=== PATIENT | male | born 1960 | race Caucasian/White ===

== ENCOUNTER 2024-01-10 11:03 | Outpatient (CLI) | payer BC ==
--- NOTE | 2024-01-10 12:00 | Sleep Patient Instructions ---
Sleep Center Visit Summary - Patient Visit Information Reason for Visit: Initial consultation - Patient Instructions Additional Instructions: You will continue with CPAP therapy with pressure changed to 8-13 cmH2O. A supply prescription will be updated with your DME. We encourage you to continue to try to lose weight. Please follow up with the sleep care office in 1 year. - Clinic Information Contact: [facility] [address] [place] [address] [email or web address] T: [phone]
--- NOTE | 2024-01-10 12:07 | SLEEP CARE CONSULTATION ---
Information from patient questionnaire entered by Sedrick Duran. I have reviewed and concur with the information entered by Sedrick Duran. This document represents the service I personally performed and the decisions made by me, Hannah Hawkins ARNP. History of Present Illness Service Date and Time: 01/10/2024 1103 Reason for Visit: New patient, Previously diagnosed sleep apnea, sleep apnea on CPAP therapy Chief Complaint: reports: Other (Update supplies - prior sleep center closed - need continued care) Date of Onset: Apnea - 15 years Usual bedtime: 11:00 PM Time it takes to fall asleep: 10 minutes Snores at night: Yes Observed to quit breathing while asleep: Yes Sleeps alone due to snoring: Yes Number of times waking at night: One or two Reasons for waking at night: reports: Snoring, Bathroom, Other (Noise) Toss, Turn, or Twitch while sleeping: Yes Recalls having dreams: Yes Usually gets out of bed at: 7:30 AM Feels refreshed in the morning: Yes Morning headache: No Sleepy or fatigued during the day: No Ever fallen asleep while driving: No Takes day naps: No Dreams during day naps: No Prior sleep studies: Yes Year and Where: 2015 [facility] Type of Sleep Study: Polysomnography Additional HPI information: TULIO RIOS was previously diagnosed to have moderate, AHI 16, obstructive sleep apnea-hypopnea syndrome as seen in sleep study dated 06/29/2016 through [facility] and comes in today to establish care for CPAP therapy. - Parasomnia Symptoms Ever been unable to move upon waking from sleep: No Walks in sleep: No Talks in sleep: No Ever acted out dreams in sleep: No Ever felt weak in the knees when startled or emotional: No Bothered by creepy, crawly, restless sensations in legs: No Problems with memory or concentration: No CPAP Compliance Data - Data Reviewed with Patient Average duration of nightly device use: 7 hours 4 minutes Compliance rate %: 88.3 (07/14/23-01/09/24; 169/180 days used) Current pressure setting (cmH2O): 4-20 (median 6.4, avg 8.8, max 12.8) Average residual AHI: 1.4 Average large leak: 0 secs Compliance data discussion: He has a Dreamstation 2. He is using [place] for his supplies but needs his prescription updated. He is using a nasal pillows mask. Subjective Missed days of use due to: reports: illness Patient concerns: reports: mask discomfort (nasal irritation occasionlly from pillows mask), dry mouth, nose, throat (occasionally). denies: aerophagia, air blowing in eyes, mask leak noise, condensation in mask/hose, nasal congestion, epistaxis Observed to snore while using device: Yes (occasionally) Current pressure setting perceived as: comfortable On therapy, patient: reports: sleeping better, awakening more refreshed, being more awake and alert during the day, more rested overall. denies: drowsiness while driving Initial [place] Sleepiness Scale score: 6 (in 2023) Past Medical History Past Medical History: reports: Other (Have neuropathy in my feet and high cholesterol, but am not receiving any treatment for either.) Social History The patient is retired. Patient is and lives in [place]. Have you smoked in the past 12 months: No Alcohol use: Yes Alcohol amount and frequency: One every 2-3 days Caffeine use: Yes Caffeine amount and frequency: 12 oz soda every 1-2 days Family History Family history of sleep disordered breathing: Yes Family Hx Sleep Apnea: Father: Snoring, Sibling: Snoring, Sleep apnea - Treated, Sleep apnea - Untreated Allergies and Home Medications Known drug allergies: No Drug allergies reviewed: Yes Home medication list reviewed: Yes Allergy and home medication list: Allergies No Known Drug Allergies Allergy (Verified 01/10/24 11:44) Home Medications No Known Home Medications 01/10/24 [History] Review of Systems Weight gain over past 5 years: 5 Cardiovascular: denies: high blood pressure Gastrointestinal: denies: heartburn Neurological: reports: fainting or unconsciousness (Reaction to skin cuts/bleeding or needle sticks). denies: headaches Psychiatric: denies: anxiety, depression Ear/Nose/Throat: reports: nose bleeds, wisdom teeth removed. denies: tonsillectomy Physical Exam Vital signs obtained and entered by: Hannah Maldonado NP Blood Pressure: 133/78 Cuff size: regular (left arm) Heart Rate: 58 O2 Saturation: 98 Height: 6 ft 6 in Weight: 271 lb 6.4 oz Body Mass Index: 31.4 BMI Classification: Obese Neck circumference: 18 (inches) Heart: regular rate and rhythm Lungs: clear bilaterally Impression and Plan 1. Obstructive Sleep Apnea-Hypopnea Syndrome, moderate, with good treatment compliance and good apnea control. On CPAP therapy, the patient has better sleep quality and is more rested overall. He is not sure if he is ever had a pressure change. I am going to have his pressure adjusted to 8-13 cm H2O as reflected on his CPAP use and apnea is well controlled. Patient has significant improvement of their sleep apnea and is satisfied with current CPAP therapy. Patient is using a nasal pillows mask and occasionally gets soreness in his nose. He says this is not often or a problem. He also says his tells him he still snores occasionally. He does think his mouth might be coming open, oral venting, because he does get a little bit of oral dryness along with this. We talked about using a chinstrap or snoring strips to keep his lips together. He states he is to use a full face mask and could change to the full face, if it would help. He wants to try the nasal pillows with the snoring strips first before changing the mask type. I encouraged him to call the office, if he decides he would like to change to a full face mask. He voiced understanding. Patient's apnea severity and rationale for treatment to reduce apnea, improve sleep quality and reduce cardiovascular and cerebrovascular events was reviewed. 2. Obesity, unspecified. Currently patients BMI is 31.4. Obesity increases the risk of apnea, CPAP pressure requirements and overall health risks especially cardiovascular and diabetes. Thus patient is advised to lose weight. * Change auto CPAP pressure to 8-13 cmH2O * Update supply prescription * Mask change to full face mask, refitting as needed * Notify me if snoring with mask or feeling that the pressure is too much or too little * Attempt to lose weight * Call this office if any problems using CPAP * Return for follow up in 1 year, or sooner if concerns arise Counseling Topics: Spare mask, Weight loss health impact Prescriptions: Device supplies Follow up with Sleep Care in: 1 year Visit Type: In Office Time Spent with Patient (minutes): 34 Provider Statement: I spent 100% of the Face to Face Visit with the patient with greater than 50% spent counseling the patient and coordination of care.
[2024-01-10 12:16] VITALS: BP 133/78; O2SAT 98
== END 2024-01-10 11:04 | disposition home or self-care (01) ==
LOC: SC 11:03
PROVIDERS: ATTEND Nurse Practitioner Family
DX: G47.33 Obstructive sleep apnea (adult) (pediatric) (principal); E66.9 Obesity, unspecified; Z68.31 Body mass index [BMI] 31.0-31.9, adult
CPT/HCPCS: 99203; 99212